=== PATIENT | male | born 1950 | race Hispanic/Latino ===

== ENCOUNTER 2018-07-29 18:37 | Observation (INO) | payer MEDICARE, MEDICAID ==
[2018-07-29 20:15] LABS: HEMOGLOBIN 14.9 g/dL (14.0-18.0); MEAN CORPUSCULAR HEMOGLOBIN 29.2 pg (25.0-35.0); MEAN CORPUSCULAR HGB CONC 32.4 g/dl (31.0-37.0); MEAN PLATELET VOLUME 9.8 fl (7.0-11.0); RBC 5.11 10^6/uL (3.5-6.1); RED CELL DISTRIBUTION WIDTH 15.5 % (11.5-14.5)
--- NOTE | 2018-07-29 20:37 | ED PDOC ---
Arrival/HPI - General Chief Complaint: Abnormal Labs Time Seen by Provider: 07/29/18 19:17 Historian: Patient - History of Present Illness Narrative History of Present Illness (Text): 07/29/18 20:34 67 year old male, whose past medical history includes CAD, hypertension, and diabetes, presents to the emergency department for evaluation of possible elevated potassium levels. Patient states he had routine blood work done by james swenson. Patient states PMD called him back this evening and advised him to come to the emergency department to check potassium levels. Patient denies any symptoms and states "I feel fine". Patient denies any fevers, chills, headache, dizziness, chest pain, shortness of breath, cough, abdominal pain, nausea, vomiting, diarrhea, back pain, neck pain, urinary/bowel changes, or any other complaint. Time/Duration: Prior to Arrival Past Medical History - Provider Review Nursing Documentation Reviewed: Yes - Infectious Disease Hx of Infectious Diseases: None - Cardiac Hx Cardiac Disorders: No - Neurological HX Cerebrovascular Accident: Yes - Endocrine/Metabolic Hx Diabetes Mellitus Type 2: Yes - Hematological/Oncological Hx Blood Disorders: No - Gastrointestinal Hx Gastrointestinal Disorders: No - Psychiatric Hx Substance Use: No - Anesthesia Hx Anesthesia: No Family/Social History - Physician Review Nursing Documentation Reviewed: Yes Family/Social History: No Known Family HX Smoking Status: Unknown If Ever Smoked Hx Alcohol Use: No Hx Substance Use: No Allergies/Home Meds Allergies/Adverse Reactions: Allergies No Known Allergies Allergy (Verified 07/29/18 19:17) Review of Systems - Physician Review All systems were reviewed & negative as marked: Yes - Review of Systems Constitutional: absent: Fevers, Night Sweats Respiratory: absent: SOB, Cough Cardiovascular: absent: Chest Pain Gastrointestinal: absent: Abdominal Pain, Diarrhea, Nausea, Vomiting Genitourinary Male: absent: Urinary Output Changes Musculoskeletal: absent: Back Pain, Neck Pain Neurological: absent: Headache, Dizziness Physical Exam Vital Signs Reviewed: Yes Vital Signs Temp Pulse Resp BP Pulse Ox 07/29/18 19:13 98.7 F 115 H 20 129/76 96 Temperature: Afebrile Blood Pressure: Normal Pulse: Tachycardic Respiratory Rate: Normal Appearance: Positive for: Well-Appearing, Non-Toxic, Comfortable Pain Distress: None Mental Status: Positive for: Alert and Oriented X 3 - Systems Exam Head: Present: Atraumatic, Normocephalic Pupils: Present: PERRL Extroacular Muscles: Present: EOMI Conjunctiva: Present: Normal Mouth: Present: Moist Mucous Membranes Neck: Present: Normal Range of Motion Respiratory/Chest: Present: Clear to Auscultation, Good Air Exchange. No: Respiratory Distress, Accessory Muscle Use Cardiovascular: Present: Regular Rate and Rhythm, Normal S1, S2. No: Murmurs Abdomen: No: Tenderness, Distention, Peritoneal Signs Back: Present: Normal Inspection Upper Extremity: Present: Normal Inspection. No: Cyanosis, Edema Lower Extremity: Present: Normal Inspection. No: Edema Neurological: Present: GCS=15, CN II-XII Intact, Speech Normal Skin: Present: Warm, Dry, Normal Color. No: Rashes Psychiatric: Present: Alert, Oriented x 3, Normal Insight, Normal Concentration Medical Decision Making ED Course and Treatment: 07/29/18 20:38 Impression: 67 year old male presents for evaluation of possibly elevated potas sium. Plan: -- Labs -- Reassess and disposition Prior Visits: Notes and results from previous visits were reviewed. Progress Notes: 07/29/18 21:37 EKG: Ordered, reviewed, and independently interpreted the EKG. Rate : 95 BPM Rhythm : NSR Interpretation : LAD and non specific ST changes. 07/29/18 22:30 Case was discussed with Dr. Fox, the patient's kettle cleaner, who requested patient be placed on Dr. Barahona's service, she will consult. Call was placed to Dr. Barahona's service. - Lab Interpretations Lab Results: 07/29/18 20:06 Lab Results 07/29/18 20:06: WBC 12.0 H, RBC 5.11, Hgb 14.9, Hct 46.0, MCV 90.0, MCH 29.2, MCHC 32.4, RDW 15.5 H, Plt Count 220, MPV 9.8 - Scribe Statement The provider has reviewed the documentation as recorded by the Moiz [facility] Provider Scribe Attestation: All medical record entries made by the Scribe were at my direction and personally dictated by me. I have reviewed the chart and agree that the record accurately reflects my personal performance of the history, physical exam, medical decision making, and the department course for this patient. I have also personally directed, reviewed, and agree with the discharge instructions and disposition. Disposition/Present on Arrival - Present on Arrival Any Indicators Present on Arrival: No History of DVT/PE: No History of Uncontrolled Diabetes: No Urinary Catheter: No History of Decub. Ulcer: No History Surgical Site Infection Following: None - Disposition Have Diagnosis and Disposition been Completed?: Yes Diagnosis: Hyperkalemia, Renal insufficiency Disposition: HOSPITALIZED Disposition Time: 23:01 Patient Plan: Observation Patient Problems: Current Active Problems Problem Status Onset Hyperkalemia Acute Renal insufficiency Acute Condition: GOOD Forms: [facility] (Kyrgyz)
[2018-07-29 20:39] LABS: ALB/GLOB RATIO 1.3 (1.1-1.8); ALBUMIN 4.2 g/dL (3.0-4.8); CALCIUM 8.9 mg/dL (8.4-10.5)
[2018-07-29] MEDS ORDERED: Sod Polystyrene Sulf 15 gm/60 ml Susp PO ONE (20:40)
[2018-07-29] MEDS ORDERED: Sodium Bicarbonate (8.4%) 50 Meq Syringe IVP ONE (20:50)
[2018-07-29] MEDS ORDERED: Insulin Regular 1 UNITS/0.01 ML ML IVP STA (20:50)
[2018-07-29] MEDS ORDERED: Sodium Chloride 0.9% 1,000 ML IV STA (21:22)
[2018-07-29 22:28] LABS: TROPONIN I < 0.01 ng/mL
[2018-07-29] MEDS ORDERED: Sodium Chloride 0.9% 1,000 ML IV SCH (22:45)
[2018-07-30 04:59] VITALS: BMI 39.9
[2018-07-30 06:02] VITALS: O2SAT 95
--- NOTE | 2018-07-30 11:05 | CARD ---
APPROVED REPORT Date of service: 07/29/2018 EKG Measurement Heart [id number] OR [id number] <Conclusion> Normal sinus rhythm Left axis deviation Low voltage QRS PRWP Possible ASMI, age unknown
[2018-07-30 11:17] LABS: ALB/GLOB RATIO 1.4 (1.1-1.8); ALBUMIN 3.9 g/dL (3.0-4.8); CALCIUM 8.9 mg/dL (8.4-10.5)
[2018-07-30] MEDS ORDERED: Sod Polystyrene Sulf 15 gm/60 ml Susp PO ONE (11:51)
[2018-07-30 12:19] LABS: URINE BILIRUBIN NEGATIVE (NEGATIVE); URINE BLOOD NEGATIVE (NEGATIVE); URINE GLUCOSE (UA) >=1000 mg/dL (NEGATIVE); URINE LEUKOCYTE ESTERASE NEGATIVE Leu/uL (NEGATIVE); URINE PROTEIN NEGATIVE mg/dL (<30 mg/dL); URINE UROBILINOGEN 0.2 E.U./dL (<1 E.U./dL)
[2018-07-30 12:23] LABS: URINE APPEARANCE CLEAR (CLEAR); URINE COLOR YELLOW (YELLOW)
--- NOTE | 2018-07-30 22:29 | CON ---
DATE: 07/30/2018 REASON FOR CONSULTATION: Hyperkalemia, acute kidney injury superimposed on chronic kidney disease. HISTORY OF PRESENTING ILLNESS: A 67-year-old male previously unknown to me, known to Dr. Pavon from our group. The patient was sent to the emergency room because of potassium of 6.0. He denies any chest pain. He denies any palpitations. He denies any excessive potassium intake. He is on Aldactone 50 mg b.i.d. at home, he is also on losartan? at home. MEDICATIONS: He denies any recent changes in his medications. PAST MEDICAL AND SURGICAL HISTORY: NIDDM for almost 10 years, hypertension for 10 years, CVA x1, chronic kidney disease stage III, CHF, hyperlipidemia. FAMILY HISTORY: Noncontributory. SOCIAL HISTORY: No smoking, no alcohol use, no IV drug abuse. ALLERGIES: NO KNOWN DRUG ALLERGIES. MEDICATIONS AT HOME: Insulin, aspirin, Jardiance, cholecalciferol, gabapentin, hydralazine 10 t.i.d., simvastatin 20, Lopressor 100 b.i.d., Aldactone 50 b.i.d. REVIEW OF SYSTEMS: All systems are reviewed, pertinent positives as mentioned in history of presenting illness, rest unremarkable. PHYSICAL EXAMINATION GENERAL: Obese, elderly male, sitting in bed. VITAL SIGNS: Blood pressure 149/88, heart rate 92, respiratory rate 21, temperature 98. HEENT: Normocephalic, atraumatic, positive pallor. NECK: Supple, no JVD. LUNGS: Bilateral equal entry, bilateral equal expansion. CARDIAC: S1 and S2, regular rate and rhythm, no murmur, no rub. ABDOMEN: Obese, distended, soft, nontender, bowel sounds present. EXTREMITIES: No lower extremity edema. INTAKE AND OUTPUT: Not charted. LABORATORY DATA: WBC 12, hemoglobin 14.9, hematocrit 46, platelets 220. Sodium 140, potassium 5.5, chloride 108, C02 21, BUN 27, creatinine 1.7, glucose 293, calcium 8.9, phosphorus 3.4, magnesium 1.8, albumin 3.9. Urinalysis: Yellow, clear, pH 6.0, specific gravity 10.10, protein negative, glucose greater than 1000, ketones negative, bilirubin negative. CURRENT MEDICATIONS: Sodium bicarbonate 650 every 8, Kayexalate 15 g given, normal saline at 60. ASSESSMENT: 1. Hyperkalemia, likely iatrogenic secondary to spironolactone and losartan. 2. Acute kidney injury superimposed on chronic kidney disease, stage III. 3. Longstanding diabetes. 4. Hypertension. 5. Cerebrovascular accident. PLAN: 1. Discontinue Aldactone. 2. Hold losartan for the time being. 3. Change sodium bicarbonate to 650 daily. 4. Discontinue IV fluids. 5. Monitor potassium. 6. Early discharge. Alona Fox MD
[2018-07-30] MEDS: Insulin Lispro (HUMAlog) HIGH Coverage SC SCH (23:04)
[2018-07-31] MEDS: Insulin Lispro (HUMAlog) HIGH Coverage SC SCH ×3 (08:14→16:47)
[2018-07-31 08:25] LABS: ALB/GLOB RATIO 1.3 (1.1-1.8); ALBUMIN 3.9 g/dL (3.0-4.8); CALCIUM 8.9 mg/dL (8.4-10.5)
--- NOTE | 2018-07-31 09:15 | HP ---
DATE OF EXAM: HISTORY OF PRESENT ILLNESS: The patient is 67-year-old, the patient of Dr. Pavon, who was seen by Dr. Pavon who did routine blood work. He was found to have high potassium, he was called to come to emergency room to take care of hyperkalemia. Upon interviewing the patient, he states he is fine, have no complaint. No chest pain or shortness of breath. No nausea or vomiting. No diarrhea. No abdominal pain. No fever or chills. PAST MEDICAL HISTORY: Significant for: 1. Hypertension. 2. Non-insulin dependent diabetes. 3. History of CVA with some residual numbness in the right hand. 4. History of tonsillectomy. ALLERGIES: HE IS NOT ALLERGIC TO ANY MEDICATIONS. MEDICATIONS AT HOME: He is on insulin, aspirin 81 daily, he is on Jardiance, he is on gabapentin, hydralazine 10 mg 3 times a day, simvastatin 20 mg daily,metoprolol 100 mg twice a day, Xyzal, spironolactone. SOCIAL HISTORY: He lives by himself. His . He used to be a smoker in the past. PHYSICAL EXAMINATION: GENERAL: He is awake, alert, oriented and communicative. VITAL SIGNS: He is afebrile, pulse 98, respirations 21 and blood pressure 153/83. LUNGS: Bilateral fair airflow. No rhonchi or crackle. HEART: S1 and S2 audible. ABDOMEN: Soft, obese and nontender. No rebound. No guarding. NEUROLOGICAL: He is awake, alert, oriented and communicative. Moves all extremity. Bilateral leg, no edema. LABORATORY DATA: WBC is 12, hemoglobin 14.9, hematocrit 46 and platelets 220. Chemistry; sodium 140, potassium 5.5, chloride 108, CO2 of 21, BUN 27, creatinine 1.7 and blood sugar of 254. Urinalysis is negative. EKG shows normal sinus rhythm, left axis deviation. ASSESSMENT: 1. Hyperkalemia. 2. Hypertension. 3. Morbid obesity. 4. Non-insulin dependent diabetes. 5. History of cerebrovascular accident in the past. PLAN: The patient was given last night and this morning. We will monitor his blood pressure. We will follow up with potassium in a.m., hold his Aldactone. The patient is otherwise asymptomatic. If his potassium is below 5, possible discharge in a.m. Claudio Barahona MD [facility] # [id number]
[2018-07-31] MEDS ORDERED: Sod Polystyrene Sulf 15 gm/60 ml Susp PO ONE (10:21)
--- NOTE | 2018-07-31 12:56 | PN ---
DATE: 07/30/2018 SUBJECTIVE: The patient is currently seen ambulating in his room on 2R. The patient's potassium level today is 5.1. From my standpoint, the patient is ready for discharge. Apparently, the patient had been using Aldactone at home unknown to me. The patient had not been using losartan. MEDICATIONS: Medication list reviewed. The patient is currently on hydralazine, aspirin, insulin sliding scale, Lipitor, Lopressor, Neurontin, and sodium bicarbonate tablets. OBJECTIVE: INTAKE/OUTPUT: Intake 1860 and output 1050. VITAL SIGNS: Blood pressure 125/82, temperature 98.2, respiratory rate 20 with a pulse of 98. HEENT: Exam shows him to be normocephalic and atraumatic. Conjunctivae are pink. Sclerae are nonicteric. NECK: Supple. No neck vein distention. CHEST: Clear to auscultation and percussion. No rales, rhonchi or wheezing. CARDIOVASCULAR: Regular rate and rhythm without murmurs, rubs or gallops. ABDOMEN: Soft. Bowel sounds are normal. Mild obesity. No rebound or guarding. EXTREMITIES: No lower extremity cyanosis, clubbing or edema. LABORATORY DATA AND IMAGING: CBC from admission, white blood cell count 12.0, hemoglobin 14.9. Chemistries showed a potassium level, which was 5.7 in the emergency room. It has steadily dropped and is currently down to 5.1 today. Chloride 108. CO2 is 23, up from 16. Glucose is 238. Calcium, phosphorus and magnesium level are normal. Albumin is 3.9. Urine is unremarkable. ASSESSMENT: 1. Status post hyperkalemia. The patient had a potassium level of 6.8 on outpatient blood work last week in my office, non-hemolyzed. In the emergency room, it was down to 5.7. Apparently, the patient had been using Aldactone unknown to me. The patient had not been using angiotensin receptor darrin therapy. For right now, he will remain off all these medications, which could elevate his potassium level. He has never had a metabolic acidosis in the outpatient setting from my standpoint with correction of the potassium level. The patient does not need to be discharged home on sodium bicarbonate supplements. 2. Chronic kidney disease stage 3 with acute elevation of his BUN and creatinine, resolved. 3. History of longstanding noninsulin-dependent diabetes mellitus, controlled. 4. History of hypertension, controlled on present medication. 5. Status post cerebrovascular accident with peripheral vascular disease. PLAN: I reviewed the patient's medication list with him, Aldactone had been crossed out. The patient is not using losartan. I can discontinue sodium bicarbonate therapy. The patient to limit potassium in his diet, this has been discussed with him in the past. From renal standpoint, the patient may be discharged home for outpatient followup. Patel Fernandez MD
[2018-07-31 14:07] VITALS: RESP 18
[2018-07-31 15:52] LABS: CALCIUM 8.8 mg/dL (8.4-10.5)
[2018-07-31 17:15] VITALS: BP 150/82; PULSE 75; TEMP 98.5
--- NOTE | 2018-08-01 15:02 | DS ---
HISTORY OF PRESENT ILLNESS: The patient is 67 years old, seen and examined, sitting in chair, seems to be comfortable, was brought in because of high potassium. He was given Kayexalate yesterday and was given cocktail of insulin, calcium gluconate, and D50. This morning his potassium was still high at 5.1, he has been given one more of Kayexalate and will repeat his Chem-7 around 3 o'clock and will be discharged later on today. PHYSICAL EXAMINATION: GENERAL: He is awake, alert, oriented, and communicative. VITAL SIGNS: He is afebrile, pulse 75, respirations 18, blood pressure 12 . LUNGS: Bilateral fair airflow. No rhonchi or crackle. HEART: S1 and S2, audible. ABDOMEN: Soft, nontender. No rebound. No guarding. NEUROLOGICAL: The patient is awake, alert, oriented, and communicative. LABORATORY DATA: Chemistry: Sodium 140, potassium 5.1, chloride 108, CO2 23, BUN 23, creatinine 1.6, blood sugar 238. Blood cultures are negative. ASSESSMENT: 1. Hyperkalemia. 2. Hypertension. 3. History of non-insulin dependent diabetes. 4. History of cerebrovascular accident in the past. PLAN: The patient will be discharged today. He is advised to stop taking spironolactone. He will follow up with his PMD on Thursday to be rechecked and he will resume his medication except spironolactone. Claudio Barahona MD
== END 2018-07-31 18:48 | disposition home or self-care (01) ==
LOC: ED 18:37 → ERH 23:02 → 2RSO 07-30 00:10
PROVIDERS: ADMIT Internal Medicine; ATTEND Internal Medicine
DX: E87.5 Hyperkalemia (principal); N17.9 Acute kidney failure, unspecified; I13.0 Hypertensive heart and chronic kidney disease with heart failure and stage 1 through stage 4 chronic kidney disease, or unspecified chronic kidney disease; I50.9 Heart failure, unspecified; N18.3 Chronic kidney disease, stage 3 (moderate); E11.22 Type 2 diabetes mellitus with diabetic chronic kidney disease; E11.51 Type 2 diabetes mellitus with diabetic peripheral angiopathy without gangrene; E78.5 Hyperlipidemia, unspecified; E66.01 Morbid (severe) obesity due to excess calories; I25.10 Atherosclerotic heart disease of native coronary artery without angina pectoris; Z86.73 Personal history of transient ischemic attack (TIA), and cerebral infarction without residual deficits; Z79.82 Long term (current) use of aspirin; Z79.84 Long term (current) use of oral hypoglycemic drugs; Z87.891 Personal history of nicotine dependence; Z68.39 Body mass index [BMI] 39.0-39.9, adult
CPT/HCPCS: 36415; 80053; 81003; 82550; 82948; 83615; 83735; 84100; 84484; 85027; 87040; 87086; 93005; 96374; 96375; 99285; G0378; J7030